=== PATIENT | female | born 1985 | race Caucasian/White ===

== ENCOUNTER 2023-12-15 16:32 | Emergency (ER) | payer BC ==
[~2023-12-15] VITALS: Ht 182.9 cm; Wt 86.2 kg
[2023-12-15 16:32] VITALS: BP_SYST 125; PULSE 82; RESP 19; TEMP 97.8; O2SAT 100
[2023-12-15 17:14] LABS: BILIRUBIN,URINE NEGATIVE (NEGATIVE); BLOOD, URINE 1+ (NEGATIVE); CLARITY/URINE CLEAR (CLEAR); COLOR,URINE YELLOW (YELLOW); GLUCOSE,URINE NEGATIVE (NEGATIVE); KETONES,URINE NEGATIVE (NEGATIVE); LEUKOCYTE ESTERASE ,URINE NEGATIVE (NEGATIVE); NITRITE, URINE NEGATIVE (NEGATIVE); PROTEIN URINE NEGATIVE (NEGATIVE); UROBILINOGEN,URINE 0.2 (0.2-1.0)
[2023-12-15 17:22] LABS: BACTERIA,URINE RARE /HPF (None Seen); MUCUS,URINE None Seen /LPF (None Seen); RBC,URINE NONE SEEN /HPF (0-3); WBC,URINE 0-3 /HPF (0-3)
[2023-12-15 17:28] LABS: BASOPHILS % (AUTO) 0.3 % (0.0-2.0); EOSINOPHILS # (AUTO) 0.1 K/uL (0.0-0.4); HEMATOCRIT 40.3 % (36-48); HEMOGLOBIN 14.1 g/dL (12.0-16.0); LYMPHOCYTES # (AUTO) 1.3 K/uL (1.0-5.5); LYMPHOCYTES % (AUTO) 16.1 % (20.5-51.5); MEAN CORPUSCULAR HEMOGLOBIN 31 pg (27-31); MEAN CORPUSCULAR HGB CONC 35 % (32-36); MEAN CORPUSCULAR VOLUME 88 fL (79.0-98.0); MONOCYTES # (AUTO) 0.5 K/uL (0.0-1.0); MONOCYTES % (AUTO) 6.7 % (1.7-9.3); NEUTROPHILS # (AUTO) 5.9 K/uL (1.8-7.7); NEUTROPHILS % (AUTO) 75.9 % (40.0-70.0); PLATELET COUNT (AUTO) 231 K/uL (130-430); RED BLOOD CELL COUNT(AUTO) 4.56 MIL/uL (4.2-6.2); WHITE BLOOD COUNT (AUTO) 7.8 K/uL (4.8-10.8)
[2023-12-15 17:30] VITALS: BP_SYST 118; PULSE 68; RESP 17; TEMP 98; O2SAT 98
[2023-12-15] MEDS: NACL 0.9% 1,000 ML IV ONE (17:35)
[2023-12-15] MEDS: ONDANSETRON HCL 4 MG/2 ML VIAL IVP ONE (17:37)
[2023-12-15] MEDS ORDERED: ONDA-8 TL (17:37)
[2023-12-15 17:47] LABS: ALANINE AMINOTRANSFERASE 11 U/L (12-78); ANION GAP 6 (5-15); ASPARTATE AMINOTRANSFERASE 9 U/L (10-37); BILIRUBIN,DIRECT 0.1 mg/dL (0.0-0.3); CALCIUM 9.1 mg/dL (8.4-11.0); CARBON DIOXIDE 28 mmol/L (23-29); CHLORIDE 107 mmol/L (98-107); CREATININE 0.99 mg/dL (0.55-1.30); GFR AFRICAN AMERICAN 80 mL/min (>90); GLUCOSE 99 mg/dL (74-106); LIPASE 42 U/L (16-77); POTASSIUM 3.5 mmol/L (3.5-5.1); SODIUM SERUM 141 mmol/L (136-145); TOTAL BILIRUBIN 0.7 mg/dL (0.0-1.0); TOTAL PROTEIN, SERUM 7.1 g/dL (6.4-8.3); UREA NITROGEN, BLOOD 12 mg/dL (8-21)
[2023-12-15 17:53] LABS: GFR NON AFRICAN-AMERICAN 66 mL/min (>90)
== END 2023-12-15 18:30 | disposition home or self-care (01) ==
LOC: SED 16:32
DX: R11.2 Nausea with vomiting, unspecified (principal); R19.7 Diarrhea, unspecified; R63.0 Anorexia; Z98.890 Other specified postprocedural states; Z79.899 Other long term (current) drug therapy
CPT/HCPCS: 99283; 96374; 96361; 80076; 80048; 81001; 83690; 83735; 85025; 84484; 36415; 81025; J2405; J7030; 81000; 81015